=== PATIENT | female | born 1960 | race Caucasian/White ===

== ENCOUNTER 2017-03-28 11:30 | Emergency (ER) | payer BC ==
[~2017-03-28] VITALS: Ht 162.6 cm; Wt 84.6 kg
[~2017-03-28 11:30] MED LIST: CEFD1CAP14 PO; MOME50SP5 NAE
[2017-03-28 11:36] VITALS: TEMP 36.9; Ht 162.6 cm; Wt 84.6 kg
[2017-03-28 11:44] VITALS: O2SAT 99
[2017-03-28] MEDS ORDERED: RMCI IV (11:52)
[2017-03-28 12:19] LABS: HEMATOCRIT 42.2 % (37-47); MEAN CELL VOLUME 89.2 fL (80-100); MEAN CORPUSCULAR HEMOGLOBIN 30.9 pg (25-34); MEAN CORPUSCULAR HGB CONC 34.6 g/dl (32-36); MEAN PLATELET VOLUME 11.1 fL (7.4-10.4); PLATELET COUNT 249 K/uL (130-400); RED BLOOD COUNT 4.73 M/uL (4.2-5.4); WHITE BLOOD COUNT 6.42 K/uL (4.8-10.8)
--- NOTE | 2017-03-28 12:22 | DIAGNOSTIC IMAGING REPORT ---
CHEST ONE VIEW PORTABLE HISTORY: 56 years-old Female acute chest pain COMPARISON: None available TECHNIQUE: Portable upright AP view of the chest FINDINGS: Cardiomediastinal and hilar silhouettes are within normal limits. No pneumothorax, pleural effusion, focal airspace consolidation or overt pulmonary edema. The bones are grossly intact. 4 mm ossification about the left greater tuberosity suggest rotator cuff calcific tendinosis. Bones are grossly intact. IMPRESSION: 1. No acute cardiopulmonary process. 2. Probable calcific tendinosis of the left rotator cuff incidentally noted. The above report was generated using voice recognition software. It may contain grammatical, syntax or spelling errors. Electronically signed by: Lazarus Frausto M.D. 03/28/2017 12:21 PM Dictated Date/Time: 03/28/2017 12:19 PM
[2017-03-28] MEDS ORDERED: IBUPROFEN 600 MG TAB PO STA (12:23)
[2017-03-28 12:28] LABS: INR 0.9 (0.9-1.1); PARTIAL THROMBOPLASTIN RATIO 1.2; PROTHROMBIN TIME (PATIENT) 10.1 SECONDS (9.0-12.0)
[2017-03-28 12:38] LABS: ALT/SGPT 49 U/L (12-78); AST/SGOT 30 U/L (15-37); BLOOD UREA NITROGEN 9 mg/dl (7-18); BUN/CREATININE RATIO 10.5 (10-20); CALCIUM 9.1 mg/dl (8.5-10.1); CARBON DIOXIDE 24 mmol/L (21-32); CHLORIDE 108 mmol/L (98-107); CREATININE 0.82 mg/dl (0.60-1.20); GLUCOSE 98 mg/dl (70-99); POTASSIUM 3.8 mmol/L (3.5-5.1); SODIUM 141 mmol/L (136-145)
--- NOTE | 2017-03-28 12:38 | EMERGENCY ROOM VISIT NOTE ---
History Report prepared by Raibchandan: Miroslava Richardson Under the Supervision of: Dr. Tray Navarro M.D. First contact with patient: 12:11 Chief Complaint: CHEST PAIN Stated Complaint: CHEST/BACK PAIN Nursing Triage Summary: Constant pain in between the shoulder blades. Intermittent chest pain. Pain is dull. History of Present Illness The patient is a 56 year old female who presents to the Emergency Room with complaints of persistent chest pain that began this morning. She notes that the pain started in her right arm and moved to her back, chest, and between shoulder blades. She also notes her shoulder pain worsens with movement .The patient also states that she felt "odd" and drowsy today. She denies ever having any symptoms like this before. She denies any abdominal and leg pain. She notes one incident of shortness of breath today and denies any activity that may have caused muscular strain. The patient notes no additional chest pain when pressure added. The patient also has a history of ulcerative colitis. Source of History: patient Onset: This morning Position: chest Timing: constant Associated Symptoms: + SOB, + back pain, No abdominal pain Note: The patient notes drowsiness. Patient denies leg pain. Review of Systems All systems have been listed, reviewed, and are negative other than those previously mentioned. Please see Additional Medical History Sheet. Past Medical & Surgical Medical Problems: (1) Ulcerative Colitis, Unspecified Surgical Problems: (1) History of delivery (2) Previous section Family History No pertinent family history stated. Social History Smoking Status: Never Smoker Alcohol Use: none Marital Status: Housing Status: lives with family Occupation Status: employed Current/Historical Medications Scheduled Infliximab (Remicade), 1 DOSE IV Q8WK Scheduled PRN Tramadol (Ultram), 50 MG PO Q4H PRN for Pain Allergies Coded Allergies: No Known Allergies (Verified , 02/27/14) Physical Exam Vital Signs Date Time Temp Pulse Resp B/P (MAP) Pulse Ox O2 Delivery O2 Flow Rate FiO2 03/28/17 14:24 63 18 133/82 100 Room Air 03/28/17 13:47 76 18 135/85 98 Room Air 03/28/17 12:35 76 20 120/79 97 Room Air 03/28/17 12:07 73 98 Room Air 03/28/17 11:44 99 Room Air 03/28/17 11:41 83 03/28/17 11:39 Room Air 03/28/17 11:36 36.9 87 20 164/96 99 Room Air Physical Exam GENERAL: Patient awake, alert, oriented x 3. Patient follows commands. Patient does not appear toxic. Patient is adequately hydrated and well- nourished. SKIN: No erythema, pallor, cyanosis or rash HEENT: Normal head, pupils equal, reactive to light and accommodation. Ears normal. Oral cavity and posterior pharynx appear normal. Neck: Without adenopathy, no neck vein distention. LUNGS: Clear to auscultation. No wheezes, no rales, no rhonchi. BACK: Tenderness medial to right scapular area HEART: No murmurs. No gallops. No rubs ABDOMEN: No masses, no rebound, no hepatomegaly or splenomegaly. EXTREMITIES: No signs of trauma. No pedal or pretibial edema. No calf or thigh tenderness. NEUROLOGIC: Cranial nerves II-XII within normal limits. No gross motor sensory function deficits. Medical Decision & Procedures ER Provider Diagnostic Interpretation: X ray results are stated below per my interpretation and the radiologist's interpretation. CHEST ONE VIEW PORTABLE FINDINGS: Cardiomediastinal and hilar silhouettes are within normal limits. No pneumothorax, pleural effusion, focal airspace consolidation or overt pulmonary edema. The bones are grossly intact. 4 mm ossification about the left greater tuberosity suggest rotator cuff calcific tendinosis. Bones are grossly intact. IMPRESSION: 1. No acute cardiopulmonary process. 2. Probable calcific tendinosis of the left rotator cuff incidentally noted. The above report was generated using voice recognition software. It may contain grammatical, syntax or spelling errors. Electronically signed by: Lazarus Frausto M.D. Laboratory Results 03/28/17 11:50 03/28/17 11:50 Test 03/28/17 11:50 03/28/17 12:09 Red Blood Count 4.73 M/uL (4.2-5.4) Mean Corpuscular Volume 89.2 fL (80-100) Mean Corpuscular Hemoglobin 30.9 pg (25-34) Mean Corpuscular Hemoglobin Concent 34.6 g/dl (32-36) RDW Standard Deviation 42.0 fL (36.4-46.3) RDW Coefficient of Variation 12.9 % (11.5-14.5) Mean Platelet Volume 11.1 fL (7.4-10.4) Prothrombin Time 10.1 SECONDS (9.0-12.0) Prothromb Time International Ratio 0.9 (0.9-1.1) Activated Partial Thromboplast Time 31.1 SECONDS (21.0-31.0) Partial Thromboplastin Ratio 1.2 Anion Gap 9.0 mmol/L (3-11) Est Creatinine Clear Calc Drug Dose 82.6 ml/min Estimated GFR () 94.0 Estimated GFR (Non- 81.1 BUN/Creatinine Ratio 10.5 (10-20) Calcium Level 9.1 mg/dl (8.5-10.1) Total Bilirubin 0.7 mg/dl (0.2-1) Aspartate Amino Transf (AST/SGOT) 30 U/L (15-37) Alanine Aminotransferase (ALT/SGPT) 49 U/L (12-78) Alkaline Phosphatase 80 U/L (45-117) Total Creatine Kinase 101 U/L (26-192) Creatine Kinase MB < 0.5 ng/ml (0.5-3.6) Creatine Kinase MB Ratio (0-3.0) Total Protein 8.0 gm/dl (6.4-8.2) Albumin 4.2 gm/dl (3.4-5.0) Globulin 3.8 gm/dl (2.5-4.0) Albumin/Globulin Ratio 1.1 (0.9-2) Bedside Troponin I < 0.030 ng/ml (0-0.045) Laboratory results as stated above per my review. Medications Administered Medications (Trade) Dose Ordered Sig/Bev Route Start Time Stop Time Status Last Admin Dose Admin Ibuprofen (Motrin Tab) 600 mg NOW STAT PO 03/28/17 12:23 03/28/17 12:25 DC 03/28/17 12:31 600 MG Tramadol HCl (Ultram Tab) 50 mg NOW STAT PO 03/28/17 13:28 03/28/17 13:29 DC 03/28/17 13:48 50 MG ECG Indication: chest pain Rate (beats per minute): 84 Rhythm: normal sinus Findings: no acute ischemic change, no ectopy ED Course 1220: Past medical records reviewed. The patient was evaluated in room C10. A complete history and physical examination was performed. 1223: Motrin Tab 600 mg PO 1328: Ultram Tab 50 mg PO 1408: I reevaluated the patient and she is feeling much better. 1412: Upon reevaluation, the patient appeared to have improvement of her symptoms. I discussed today's findings with the patient. She verbalized agreement of the treatment plan. The patient was discharged home. Medical Decision I considered multiple diagnoses including myocardial infarction, chest wall pain , pericarditis, myocarditis, aortic emergencies, pulmonary embolism, congestive heart failure, GI causes, and other significant cardiopulmonary disorders. Multiple labs, EKG and imaging were obtained. Please see above. The patient has no elevation of her troponin. EKG does not reveal any acute findings. Chest x-ray appears normal. The patient does have some calcific tendinitis in her left shoulder. On examination the patient has tenderness over the right rhomboid area. I believe this is the source of her pain. The patient initially was given ibuprofen and then switched to tramadol which gave her more relief. She will be given a prescription for the same. She is to apply warm heat intermittently over the next few days. She is to follow-up with her family physician within the next 2 weeks. Medication Reconcilliation Current Medication List: was personally reviewed by me Blood Pressure Screening Patient's blood pressure: Normal blood pressure Blood pressure disposition: Did not require urgent referral Impression Primary Impression: Muscle strain of right upper back Scribe Attestation The scribe's documentation has been prepared under my direction and personally reviewed by me in its entirety. I confirm that the note above accurately reflects all work, treatment, procedures, and medical decision making performed by me. Departure Information Dispostion Home / Self-Care Prescriptions Tramadol (Ultram) 50 Mg Tab 50 MG PO Q4H Y for Pain, #20 TAB Prov: Tray Navarro M.D. 03/28/17 Referrals No Doctor, Assigned (PCP) Forms HOME CARE DOCUMENTATION FORM, IMPORTANT VISIT INFORMATION Patient Instructions My [facility] Additional Instructions Continue all of your current medications as prescribed. 1 tramadol every 4 hours as needed for pain. Apply heat intermittently to your back over the next 3 days. Avoid heavy lifting or straining. Follow-up with your family physician within the next 2 weeks. Return here sooner if the pain is getting worse or you develop shortness of breath.
[2017-03-28 12:42] LABS: ALB/GLOB RATIO 1.1 (0.9-2); ALKALINE PHOSPHATASE 80 U/L (45-117)
[2017-03-28] MEDS ORDERED: TRAMADOL HCL 50 MG TAB PO STA (13:28)
[2017-03-28] MEDS ORDERED: TRAM-10 PO (14:16)
[2017-03-28 14:24] VITALS: BP 133/82; PULSE 63; O2SAT 100
== END 2017-03-28 14:29 | disposition home or self-care (01) ==
LOC: C.EDB 11:32 → C.EDC 14:29
DX: S29.019A Strain of muscle and tendon of unspecified wall of thorax, initial encounter (principal); X58.XXXA Exposure to other specified factors, initial encounter; Z86.19 Personal history of other infectious and parasitic diseases